=== PATIENT | female | born 1960 | race African-American/Black ===

== ENCOUNTER 2025-01-22 05:51 | Day surgery (SDC) | payer MEDICARE, OTHER ==
[2025-01-22] MEDS ORDERED: LIDOCAINE-MPF 2% 5 ML VIAL ONE (07:30)
[2025-01-22] MEDS ORDERED: PROPOFOL 200 MG/20 ML BOTTLE ONE ×2 (07:30)
[2025-01-22] MEDS ORDERED: ESMOLOL HCL 100 MG/10 ML VIAL IV ONE (07:30)
[2025-01-22] MEDS ORDERED: TETRACA/BENZOCA/BUTAMBEN SPRAY 1 SPR CAN TP ONE (08:00)
[2025-01-22 10:00] VITALS: BP 113/70; TEMP 97.7
== END 2025-01-22 10:00 | disposition home or self-care (01) ==
LOC: DS 05:51
PROVIDERS: ATTEND Surgery
DX: Z12.11 Encounter for screening for malignant neoplasm of colon (principal); K21.9 Gastro-esophageal reflux disease without esophagitis; K29.50 Unspecified chronic gastritis without bleeding; K31.89 Other diseases of stomach and duodenum; K63.89 Other specified diseases of intestine; K44.9 Diaphragmatic hernia without obstruction or gangrene; K29.80 Duodenitis without bleeding; K64.4 Residual hemorrhoidal skin tags; I10 Essential (primary) hypertension; E78.5 Hyperlipidemia, unspecified; Z79.899 Other long term (current) drug therapy; Z98.890 Other specified postprocedural states
CPT/HCPCS: 43239; 45380; 88305; 88313; 88342; J3490; J7120; 43235; A4663